=== PATIENT | male | born 1970 | race Caucasian/White ===

== ENCOUNTER 2018-08-14 15:05 | Emergency (ER) | payer OTHER ==
[~2018-08-14] VITALS: Ht 188 cm; Wt 103.0 kg
[2018-08-14 15:15] VITALS: Ht 188 cm; Wt 103.0 kg
[2018-08-14 17:00] VITALS: BP 142/84
== END 2018-08-14 17:00 | disposition home or self-care (01) ==
LOC: ED 15:05
DX: S53.401A Unspecified sprain of right elbow, initial encounter (principal); Z98.890 Other specified postprocedural states; W18.39XA Other fall on same level, initial encounter; Y93.89 Activity, other specified; Y92.89 Other specified places as the place of occurrence of the external cause; Y99.8 Other external cause status
CPT/HCPCS: Q0092